=== PATIENT | female | born 1945 | race Caucasian/White ===

== ENCOUNTER → 2016-05-14 | Outpatient (REF) | payer OTHER | LOC: M LAB REF 12:05 | PROVIDERS: ATTEND Obstetrics & Gynecology | DX: R39.89 Other symptoms and signs involving the genitourinary system (principal) ==

== ENCOUNTER → 2018-05-05 | Outpatient (CLI) | payer MEDICARE ==
--- NOTE | 2018-05-05 10:05 | REP ---
RENAL ULTRASOUND COMPLETE: 05/05/2018. Clinical history. Chronic kidney disease stage III. No prior studies. The right kidney is 9.9 x 3.9 x 3.9 cm. Cortical echogenicity is normal. Cortical thickness is averaging 1 cm. There is no hydronephrosis or hydroureter. 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 On the axial images, extrarenal pelvis noted. No hydronephrosis. The left kidney is 11 x 4.2 x 4.2 cm. Likewise its cortical thickness is about a centimeter and echogenicity normal. Sinus lipomatosis seen. No hydronephrosis. Extrarenal pelvis suggested a 9 x 9 mm lower pole cyst is noted on the left. No evidence of stone or perinephric fluid. Bladder partially filled. Limited in evaluation. IMPRESSION: 1. The right kidney 9.9, left kidney 11 cm with normal cortical thickness and echogenicity at about a centimeter. Some sinus lipomatosis seen but no hydronephrosis. Small extrarenal pelves. 2. 9 x 9 mm cyst lower pole on the left. 3. Bladder cannot be well evaluated only minimally filled. Electronically Signed by Dwayne Alexandre MD 05/05/2018 06:31 P
--- NOTE | 2018-05-05 10:21 | REP ---
KIDNEY SCAN WITH FLOW AND FUNCTION: 05/05/2018. Clinical history: Chronic kidney disease stage III, renovascular hypertension. Technique: The patient received a 8.8 mCi technetium 99m Mag 3, posterior flow and function imaging obtained. Region of interest drawn around the kidney cortex per our standard technique. Left kidney has a split function 41.5% and the right 58.5%. Flow is symmetric and not delayed. Appears grossly normal. The function evaluation shows time of one half maximum activity 10.6 minutes left and 12 minutes right. Normal washout curves noted. No abnormal tracer accumulation. On the pre-void images, activity in the bladder and minimally in the collecting systems. Slightly greater right than left. On the postvoid image, the collecting systems are equivalent in intensity and bladder much decreased in activity. Impression: 1. Normal symmetric flow without delay. 2. Split function 41.5% left and 58.5% right. Time activity curves shows no evidence of delayed washout or diminished function. No abnormal tracer accumulation renal pelves. No obstruction. Electronically Signed by Dwayne Alexandre MD 05/05/2018 06:31 P
== END ==
LOC: M RAD 07:15
PROVIDERS: ATTEND Internal Medicine Nephrology
DX: N18.3 Chronic kidney disease, stage 3 (moderate) (principal); I15.0 Renovascular hypertension; N28.1 Cyst of kidney, acquired
CPT/HCPCS: 76775; 78707; A9562

== ENCOUNTER → 2018-05-29 | Outpatient (REF) | payer MEDICARE | LOC: M LAB REF 12:36 | PROVIDERS: ATTEND Internal Medicine Nephrology | DX: N39.0 Urinary tract infection, site not specified (principal) ==